=== PATIENT | male | born 1960 | race Caucasian/White ===

== ENCOUNTER 2020-07-20 07:30 | Inpatient (IN) | payer OTHER ==
[~2020-07-20] VITALS: Ht 180.3 cm; Wt 181.4 kg
[2020-07-20] MEDS ORDERED: cefTRIAXone 1GM/50ML D5W 50 ML IV ONE (08:00)
[2020-07-20] MEDS ORDERED: MIDAZOLAM HCL 5 MG/ML-1ML VIAL ONE (08:03)
[2020-07-20] MEDS ORDERED: ETOMIDATE (2MG/ML) 20ML VIAL IV ONE ×2 (08:03→08:15)
[2020-07-20] MEDS ORDERED: SUCCINYLCHOLINE CHLORIDE 20 MG/ML 10ML VIAL IV ONE ×2 (08:03→08:15)
[2020-07-20] MEDS ORDERED: MIDAZOLAM DRIP 50 mg/50mL 50 ML IV ONE (08:09)
[2020-07-20] MEDS ORDERED: MIDAZOLAM HCL 5 MG/ML-1ML VIAL IV ONE (08:15)
[2020-07-20] MEDS: MIDAZOLAM DRIP 50 mg/50mL 50 ML IV SCH (08:18)
[2020-07-20] MEDS: PROPOFOL 100 ML IV SCH (08:23)
[2020-07-20] MEDS ORDERED: PROPOFOL 100 ML IV ONE ×2 (08:25→12:48)
[2020-07-20 09:00] LABS: Lactic Acid w/Reflex 3.2 mmol/L (0.4-2.0)
[2020-07-20 09:09] LABS: Albumin 2.5 g/dL (3.4-5.0); Anion Gap 13 (5-15); Blood Urea Nitrogen 27 mg/dL (7-18); Carbon Dioxide 19 mmol/L (21-32); Chloride 106 mmol/L (98-107); Glucose 220 mg/dL (74-106); Potassium 4.7 mmol/L (3.5-5.1); Sodium 138 mmol/L (136-145)
[2020-07-20 09:15] LABS: Alanine Aminotransferase 53 U/L (16-61); Alkaline Phosphatase 68 U/L (45-117); Aspartate Aminotransferase 204 U/L (15-37); BUN/Creatinine Ratio 9.4; Bilirubin, Total 0.6 mg/dL (0.2-1.0); Blood Alcohol < 3.0 mg/dL (0-5); GFR African American 29 mL/min; GFR Non-African American 24 mL/min; Total Protein 7.7 g/dL (6.4-8.2)
[2020-07-20 09:42] LABS: Basophils # (auto) 0 10 ^3/uL (0-0.2); Eosinophils # (auto) 0 10 ^3/uL (0-0.8); Lymphocytes # (auto) 1.1 10 ^3/uL (0.4-5.4)
[2020-07-20 09:44] LABS: Basophils % (auto) 0.1 % (0.0-2.0); Hematocrit 48.3 % (41.0-53.0); Hemoglobin 15.7 g/dL (13.5-17.5); Lymphocytes % (auto) 9.6 % (10.0-50.0); Mean Corpuscular Hemoglobin 25.5 pg (28.0-32.0); Mean Corpuscular Hgb Conc. 32.5 g/dL (32.0-36.0); Mean Corpuscular Volume 78.5 fL (80.0-100.0); Monocytes # (auto) 0.8 10 ^3/uL (0-1.3); Monocytes % (auto) 7.1 % (0.0-12.0); Neutrophils # (auto) 9.7 10 ^3/uL (1.6-8.6); Neutrophils % (auto) 83.2 % (37.0-80.0); Platelet Count (auto) 284 10^3/uL (140-450); Red Blood Cells 6.15 10^6/uL (4.5-5.90); Red Cell Distribution Width 17.6 % (11.8-14.3); White Blood Cell 11.6 10^3/uL (4.4-10.8)
[2020-07-20] MEDS: NOREPINEPHRINE 8 MG/250ML KIT 250 ML IV SCH (10:18)
[2020-07-20] MEDS ORDERED: VANCOMYCIN PER PHARMACY 0 MG IV SCH (13:15)
[2020-07-20] MEDS ORDERED: REMDESIVIR PER PHARMACY 0 ML IV SCH (13:15)
[2020-07-20] MEDS ORDERED: HYDROcodone-ACET 5/325MG TAB PO PRN (13:15)
[2020-07-20] MEDS ORDERED: methylPREDNISolone SOD SUCC 125 MG/2 ML VL IV ONE (13:15)
[2020-07-20] MEDS ORDERED: ONDANSETRON HCL 4 MG/2 ML VIAL IV PRN (13:15)
[2020-07-20] MEDS ORDERED: MORPHINE SULF INJ 2 MG/ML SYRINGE 1ML IV PRN ×3 (13:15)
[2020-07-20] MEDS ORDERED: ALUM & MAG HYDROX-SIMETH LIQ(MAALOX) 30 ML PO PRN (13:15)
[2020-07-20] MEDS ORDERED: LORazepam 0.5 MG TAB PO PRN (13:15)
[2020-07-20] MEDS ORDERED: PIPERACILLIN-TAZOB 3.375GM 100 ML IV ONE (13:15)
[2020-07-20] MEDS ORDERED: DEXTROSE (50%) 50ML SYRG IV PRN (13:15)
[2020-07-20] MEDS ORDERED: ACETAMINOPHEN 500 MG TAB PO PRN (13:15)
[2020-07-20] MEDS ORDERED: ALBUTEROL SULF HFA 90MCG INH 200DOSE IN PRN (13:15)
[2020-07-20] MEDS ORDERED: DOCUSATE SOD 100 MG CAP PO PRN (13:15)
[2020-07-20] MEDS ORDERED: ENOXAPARIN SOD 100 MG/1 ML SYRINGE SC ONE ×3 (13:15→15:30)
[2020-07-20] MEDS ORDERED: NITROGLYCERIN 0.4 MG SL TAB SL PRN ×2 (13:15)
[2020-07-20] MEDS ORDERED: CHOL1000 PO (13:30)
[2020-07-20] MEDS ORDERED: MULT-928 PO (13:30)
[2020-07-20] MEDS ORDERED: GLIP5TAB12 PO (13:30)
[2020-07-20] MEDS ORDERED: LISI-646 PO (13:30)
[2020-07-20] MEDS ORDERED: ASPI-691 PO (13:30)
[2020-07-20 14:56] LABS: Basophils # (auto) 0 10 ^3/uL (0-0.2); Basophils % (auto) 0.3 % (0.0-2.0); Eosinophils # (auto) 0 10 ^3/uL (0-0.8); Hematocrit 50.5 % (41.0-53.0); Hemoglobin 14.8 g/dL (13.5-17.5); Lymphocytes # (auto) 1.6 10 ^3/uL (0.4-5.4); Lymphocytes % (auto) 11.6 % (10.0-50.0); Mean Corpuscular Hemoglobin 24.5 pg (28.0-32.0); Mean Corpuscular Hgb Conc. 29.3 g/dL (32.0-36.0); Mean Corpuscular Volume 83.4 fL (80.0-100.0); Monocytes # (auto) 1.5 10 ^3/uL (0-1.3); Monocytes % (auto) 10.5 % (0.0-12.0); Neutrophils # (auto) 10.9 10 ^3/uL (1.6-8.6); Neutrophils % (auto) 77.6 % (37.0-80.0); Nucleated Red Blood Cells % 0.1 %; Platelet Count (auto) 243 10^3/uL (140-450); Red Blood Cells 6.05 10^6/uL (4.5-5.90); Red Cell Distribution Width 18.3 % (11.8-14.3)
[2020-07-20] MEDS ORDERED: LACTATED RINGER'S 1,000 ML IV ONE (15:00)
[2020-07-20] MEDS ORDERED: FUROSEMIDE 20 MG/2 ML VIAL IV ONE (15:00)
[2020-07-20 15:06] LABS: Calcium 7.9 mg/dL (8.5-10.1); Chloride 107 mmol/L (98-107); Potassium 4.6 mmol/L (3.5-5.1); Sodium 137 mmol/L (136-145)
[2020-07-20 15:13] LABS: Lactic Acid w/Reflex 3.9 mmol/L (0.4-2.0)
[2020-07-20 15:27] LABS: Alanine Aminotransferase 59 U/L (16-61); Albumin 2.6 g/dL (3.4-5.0); Alkaline Phosphatase 70 U/L (45-117); Aspartate Aminotransferase 214 U/L (15-37); BUN/Creatinine Ratio 9.2; Bilirubin, Total 0.6 mg/dL (0.2-1.0); Blood Urea Nitrogen 32 mg/dL (7-18); Carbon Dioxide 19 mmol/L (21-32); GFR African American 23 mL/min; GFR Non-African American 19 mL/min; Glucose 232 mg/dL (74-106); Lactate Dehydrogenase 650 U/L (87-241); Magnesium 2.8 mg/dL (1.6-2.6)
[2020-07-20] MEDS ORDERED: ENOXAPARIN SOD 80 MG/0.8ML SYRINGE SC ONE (15:30)
[2020-07-20] MEDS ORDERED: VANCOMYCIN 1GM/250ML 250 ML IV ONE ×2 (15:30→22:15)
[2020-07-20] MEDS: SODIUM CHLORIDE 0.9% 1,000 ML IV SCH (16:00)
[2020-07-20 16:01] LABS: Anion Gap 11 (5-15)
[2020-07-20 16:02] LABS: CRP High Sensitivity > 19.0 mg/dL (< 0.3)
[2020-07-20] MEDS ORDERED: REMDESIVIR 200 MG in NS 210ml LOADING DOSE ADULT IV ONE (17:00)
[2020-07-20] MEDS: ACCU-CHEK COMFORT CURVE STRIP VI SCH (18:18)
[2020-07-20] MEDS: InsuLIN REG 1unit/0.01ml Soln (100units/ml) SC SCH (18:24)
[2020-07-20 18:25] VITALS: BP 86/49
[2020-07-20] MEDS: FUROSEMIDE 20 MG/2 ML VIAL IV SCH (18:30)
[2020-07-20] MEDS: PIPERACILLIN-TAZOB 3.375GM 100 ML IV SCH (19:30)
[2020-07-20] MEDS ORDERED: ACETAMINOPHEN 650 MG RECT SUPP PR ONE (20:30)
[2020-07-20 21:50] VITALS: BP 108/72
[2020-07-20] MEDS ORDERED: ENOXAPARIN SOD 150 MG/1 ML SYRINGE SC SCH (22:00)
[2020-07-20] MEDS: ATORVASTATIN 20 MG TAB PO SCH (22:00)
[2020-07-20] MEDS ORDERED: BUDESONIDE (INHALATION) 180 MCG IH IN SCH (22:00)
[2020-07-20] MEDS: BUDESONIDE (INHALATION) 0.5 MG/2 ML NEB NEB SCH (22:00)
[2020-07-20] MEDS ORDERED: FAMOTIDINE (10MG/ML) 2ML VL IV SCH (22:00)
[2020-07-21] MEDS: PIPERACILLIN-TAZOB 3.375GM 100 ML IV SCH ×3 (00:07→12:31)
[2020-07-21] MEDS: InsuLIN REG 1unit/0.01ml Soln (100units/ml) SC SCH ×3 (00:08→21:35)
[2020-07-21] MEDS: ACCU-CHEK COMFORT CURVE STRIP VI SCH ×3 (00:08→21:33)
[2020-07-21 02:21] VITALS: BP 113/69
[2020-07-21] MEDS: SODIUM CHLORIDE 0.9% 1,000 ML IV SCH (05:41)
[2020-07-21] MEDS: PROPOFOL 100 ML IV SCH (05:42)
[2020-07-21] MEDS: FUROSEMIDE 20 MG/2 ML VIAL IV SCH (05:54)
[2020-07-21] MEDS ORDERED: DEXTROSE (50%) 50ML SYRG IV PRN ×2 (06:30→13:00)
[2020-07-21 06:54] LABS: Basophils # (auto) 0 10 ^3/uL (0-0.2); Eosinophils # (auto) 0 10 ^3/uL (0-0.8); Hemoglobin 12.9 g/dL (13.5-17.5)
[2020-07-21 06:56] LABS: Basophils % (auto) 0.3 % (0.0-2.0); Hematocrit 41.2 % (41.0-53.0); Lymphocytes # (auto) 0.7 10 ^3/uL (0.4-5.4); Lymphocytes % (auto) 6.3 % (10.0-50.0); Mean Corpuscular Hemoglobin 24.6 pg (28.0-32.0); Mean Corpuscular Hgb Conc. 31.3 g/dL (32.0-36.0); Mean Corpuscular Volume 78.5 fL (80.0-100.0); Monocytes # (auto) 0.4 10 ^3/uL (0-1.3); Monocytes % (auto) 3.7 % (0.0-12.0); Neutrophils # (auto) 9.3 10 ^3/uL (1.6-8.6); Neutrophils % (auto) 89.7 % (37.0-80.0); Nucleated Red Blood Cells % 0.1 %; Platelet Count (auto) 212 10^3/uL (140-450); Red Blood Cells 5.24 10^6/uL (4.5-5.90); Red Cell Distribution Width 17.4 % (11.8-14.3); White Blood Cell 10.4 10^3/uL (4.4-10.8)
[2020-07-21 07:35] VITALS: BP 117/79
[2020-07-21 07:49] LABS: Albumin 2.1 g/dL (3.4-5.0); BUN/Creatinine Ratio 9.6; Calcium 7.3 mg/dL (8.5-10.1); Potassium 5.3 mmol/L (3.5-5.1)
[2020-07-21 07:52] LABS: Bilirubin, Total 0.6 mg/dL (0.2-1.0); Total Protein 5.9 g/dL (6.4-8.2)
[2020-07-21] MEDS: MIDAZOLAM DRIP 50 mg/50mL 50 ML IV SCH (08:15)
[2020-07-21] MEDS: NOREPINEPHRINE 8 MG/250ML KIT 250 ML IV SCH (08:59)
[2020-07-21] MEDS: BUDESONIDE (INHALATION) 0.5 MG/2 ML NEB NEB SCH ×2 (10:00→22:00)
[2020-07-21] MEDS ORDERED: InsuLIN REG 1unit/0.01ml Soln (100units/ml) IV ONE ×2 (10:15→13:00)
[2020-07-21] MEDS ORDERED: INSULIN LANTUS (GLARGINE) 1 /0.01ml (100units/ml) SC SCH (10:15)
[2020-07-21] MEDS ORDERED: SODIUM BICARBONATE 8.4 % INJ 50ML VIAL IV ONE (10:15)
--- NOTE | 2020-07-21 11:00 | NUR ---
WOUND CARE NOTE: IN TO SEE PATIENT PER WOUND CARE CONSULT REQUEST. PATIENT ADMITTED TO [facility] WITH DIAGNOSIS OF COVID 19, VIRAL PNA, HYPOXEMIC RESPIRATORY FAILURE. HE IS ER BED 16. PATIENT RESTING ON GURNEY. PATIENT MORBIDLY OBESE. WILL ORDER [facility] BARIATRIC AIR BED. PATIENT TO BE PLACED, PENDING DELIVERY BY JOSHUA TRIMBLE. PATIENT IS INTUBATED, SEDATED. HE HAS THE FOLLOWING WOUNDS NOTED: STAGE 2 PRESSURE INJURY TO THE LEFT SACRUM, RIGHT HIP SKIN TEAR, EDEMA, ERYTHEMA, HYPERKERATOTIC/XEROSIS TO BLE. WOUND PHOTOS TAKEN AT THIS TIME FOR REFERENCE. SKIN/WOUND CARE PLAN IMPLEMENTED. RECOMMEND: FREQUENT TURN SCHEDULE Q 2 HOURS, PRN CONDITION PERMITS, WITH PRESSURE REDISTRIBUTION USING PILLOWS/WEDGES, SPECIALTY BARIATRIC AIR BED, BID APPLICATION WITH ZGUARD/OPTIFOAM GENTLE SACRAL DRESSING TO SACRAL ULCER; EOD/PRN DRESSING CHANGE WITH THERAHONEY, OPTIFOAM GENTLE DRESSING TO RIGHT HIP SKIN TEAR; DIETARY CONSULT, SKIN/WOUND CARE PLAN, CONTINUED MONITORING BY WOUND CARE TEAM. Addendum: 07/21/20 at 2012 by Mariana Lundberg RN Amended: Links added.
--- NOTE | 2020-07-21 11:28 | NUR ---
Nutrition Consult for Intubated Consider Glucerna 1.2 at a goal rate of 60 ml/hr Consider Nepro CS 1.8 at 40 ml/hr if pt begins HD Est energy needs 7835-9852 kcal (20-25 kcal/kg IBW 78kg) Est protein needs 78-94g (1-1.2g/kg IBW 78kg) Will monitor and reassess prn. Addendum: 07/21/20 at [address] Amended: Links added.
[2020-07-21] MEDS ORDERED: ACCU-CHEK COMFORT CURVE STRIP VI SCH ×2 (12:00)
[2020-07-21] MEDS ORDERED: InsuLIN REG 1unit/0.01ml Soln (100units/ml) SC SCH ×2 (12:00)
[2020-07-21] MEDS: FAMOTIDINE (10MG/ML) 2ML VL IV SCH (12:30)
[2020-07-21] MEDS: DexAMETHasone SOD PHOS 10MG/1ML VIAL INJ IV SCH (12:30)
[2020-07-21] MEDS: ASPirin 81 mg TAB PO SCH (12:30)
[2020-07-21] MEDS: ZINC SULFATE 220mg CAP or TAB PO SCH (12:31)
[2020-07-21] MEDS: CHOLECALCIFEROL (VITD3) 2,000 UNIT CAP PO SCH (12:31)
[2020-07-21] MEDS: ENOXAPARIN SOD 150 MG/1 ML SYRINGE SC SCH (12:31)
[2020-07-21] MEDS: ASCORBIC ACID 1,000 MG TAB PO SCH (12:31)
[2020-07-21] MEDS: SODIUM BICARBONATE 50ML VIAL 150 ML in D5W 5% 1,000 ML IV SCH (13:00)
[2020-07-21] MEDS ORDERED: ALBUTEROL SULF 2.5 MG/0.5ML(0.5%) NEB SOLN NEB ONE (13:00)
[2020-07-21] MEDS ORDERED: SODIUM ZIRCONIUM CYCL 10 GM PAK GT ONE (13:00)
--- NOTE | 2020-07-21 13:00 | NUR ---
WOUND CARE NOTE: [facility] BARIATRIC AIR BED ORDERED AT THIS TIME. PATIENT TO BE PLACED, PENDING DELIVERY BY JOSHUA MOE
[2020-07-21] MEDS ORDERED: MIDAZOLAM DRIP 50 mg/50mL 50 ML IV ONE (13:06)
[2020-07-21] MEDS ORDERED: PROPOFOL 100 ML IV ONE (13:06)
[2020-07-21] MEDS ORDERED: SODIUM BICARBONATE 8.4% INJ 50ML SYRINGE ONE ×2 (13:45→14:03)
[2020-07-21] MEDS ORDERED: SOD CHL 0.45% 1,000 ML IV SCH (14:15)
[2020-07-21] MEDS ORDERED: REMDESIVIR 100 MG in SODIUM CHL 0.9% 250 ML IV SCH (15:00)
--- NOTE | 2020-07-21 17:20 | NUR ---
WOUND CARE NOTE: JOSHUA ROM REP CALLED. ETA FOR BARIATRIC BED IS FOR 1830.
[2020-07-21] MEDS: PIPERACILLIN-TAZOB 2.25GM 50 ML IV SCH (18:00)
[2020-07-21 18:40] VITALS: BP 115/75
--- NOTE | 2020-07-21 18:40 | NUR ---
RECEIVED PT ON VENT V19, VENT CHECK DONE FROM PT ROOM. VENT CONNECTED TO RED OUTLET AND O2 SOURCE ALARMS ARE SET AND AUDIBLE. AMBU BAG AND MASK AT BEDSIDE. NO VENT CHANGES MADE, WILL CONTINUE TO MONITOR.
[2020-07-21] MEDS: ATORVASTATIN 20 MG TAB PO SCH (22:06)
[2020-07-21] MEDS: LINEZOLID 600MG/300ML 300 ML IV SCH (22:06)
[2020-07-21] MEDS: SODIUM ZIRCONIUM CYCL 10 GM PAK GT SCH (22:06)
[2020-07-22] VITALS (17 sets, daily range): BP systolic 93–109; BP diastolic 54–67
[2020-07-22] MEDS: ACCU-CHEK COMFORT CURVE STRIP VI SCH ×9 (00:49→20:00)
[2020-07-22] MEDS: SODIUM BICARBONATE 50ML VIAL 150 ML in D5W 5% 1,000 ML IV SCH ×2 (00:50→12:00)
[2020-07-22] MEDS: InsuLIN REG 1unit/0.01ml Soln (100units/ml) SC SCH ×7 (00:51→20:00)
[2020-07-22] MEDS: PIPERACILLIN-TAZOB 2.25GM 50 ML IV SCH ×4 (01:11→17:54)
[2020-07-22] MEDS: PROPOFOL 100 ML IV SCH (01:12)
[2020-07-22 03:11] LABS: Alcohol, Urine < 3.0 mg/dL (0-10); Amphetamine Screen, Urine NEGATIVE (NEGATIVE); Barbiturate Scree,Urine NEGATIVE (NEGATIVE); Benzodiazephine Screen, Urine POSITIVE (NEGATIVE); Cannabinoid Screen, Urine NEGATIVE (NEGATIVE); Cocaine Screen, Urine NEGATIVE (NEGATIVE); Opiate Scree,Urine NEGATIVE (NEGATIVE); Phencyclidine Screen, Urine NEGATIVE (NEGATIVE)
[2020-07-22 03:30] LABS: Urine Bacteria NONE SEEN /hpf (None Seen); Urine Blood 3+ /uL (Negative); Urine Specific Gravity 1.023 (1.001-1.035); Urine WBC 12 /hpf (0 - 3); Urine WBC Clumps PRESENT /hpf (None Seen)
[2020-07-22] MEDS: SODIUM ZIRCONIUM CYCL 10 GM PAK GT SCH ×3 (06:00→21:42)
[2020-07-22 06:08] LABS: Basophils # (auto) 0 10 ^3/uL (0-0.2); Basophils % (auto) 0.1 % (0.0-2.0); Eosinophils # (auto) 0 10 ^3/uL (0-0.8); Lymphocytes # (auto) 0.5 10 ^3/uL (0.4-5.4); Monocytes # (auto) 0.5 10 ^3/uL (0-1.3); Nucleated Red Blood Cells % 0.1 %; Red Cell Distribution Width 17.5 % (11.8-14.3)
[2020-07-22 06:15] LABS: Hematocrit 37.3 % (41.0-53.0); Hemoglobin 11.9 g/dL (13.5-17.5); Lymphocytes % (auto) 5.4 % (10.0-50.0); Mean Corpuscular Hemoglobin 24.9 pg (28.0-32.0); Mean Corpuscular Hgb Conc. 31.9 g/dL (32.0-36.0); Mean Corpuscular Volume 77.9 fL (80.0-100.0); Monocytes % (auto) 6.1 % (0.0-12.0); Neutrophils % (auto) 88.4 % (37.0-80.0); Platelet Count (auto) 191 10^3/uL (140-450); Red Blood Cells 4.79 10^6/uL (4.5-5.90)
[2020-07-22 06:19] LABS: Potassium 4.7 mmol/L (3.5-5.1)
[2020-07-22 06:20] LABS: Albumin 1.8 g/dL (3.4-5.0)
[2020-07-22 06:23] LABS: BUN/Creatinine Ratio 9.7; Bilirubin, Total 0.3 mg/dL (0.2-1.0); Total Protein 6.1 g/dL (6.4-8.2)
[2020-07-22] MEDS ORDERED: INSULIN LANTUS (GLARGINE) 1 /0.01ml (100units/ml) SC SCH (07:00)
--- NOTE | 2020-07-22 07:54 | NUR ---
BLOOD SUGAR 418 CHECKED X2. PAGED HOSPITALIST.
[2020-07-22] MEDS: MIDAZOLAM DRIP 50 mg/50mL 50 ML IV SCH ×3 (08:15→21:30)
[2020-07-22] MEDS ORDERED: cefTRIAXone 1GM/50ML D5W 50 ML IV SCH (09:00)
[2020-07-22] MEDS: NOREPINEPHRINE 8 MG/250ML KIT 250 ML IV SCH (09:30)
[2020-07-22] MEDS: ASCORBIC ACID 1,000 MG TAB PO SCH (09:54)
[2020-07-22] MEDS: CHOLECALCIFEROL (VITD3) 2,000 UNIT CAP PO SCH (09:54)
[2020-07-22] MEDS: LINEZOLID 600MG/300ML 300 ML IV SCH ×2 (09:54→21:55)
[2020-07-22] MEDS: DexAMETHasone SOD PHOS 10MG/1ML VIAL INJ IV SCH (09:54)
[2020-07-22] MEDS: FAMOTIDINE (10MG/ML) 2ML VL IV SCH (09:54)
[2020-07-22] MEDS: ASPirin 81 mg TAB PO SCH (09:54)
[2020-07-22] MEDS: PANTOPRAZOLE 40 MG/10 ML VIAL INJ IV SCH (09:54)
[2020-07-22] MEDS: ENOXAPARIN SOD 150 MG/1 ML SYRINGE SC SCH (09:54)
[2020-07-22] MEDS: ZINC SULFATE 220mg CAP or TAB PO SCH (09:54)
--- NOTE | 2020-07-22 10:00 | NUR ---
Updated md thayer on blood sugar levels
--- NOTE | 2020-07-22 11:01 | NUR ---
RECEIVED PHONE CALL FROM JEN UPDATED ON PATIENT STATUS, NO NEW ORDERS RECEIVED
[2020-07-22] MEDS ORDERED: DEXTROSE (50%) 50ML SYRG IV PRN (12:00)
--- NOTE | 2020-07-22 12:10 | NUR ---
MD CHO AT BEDSIDE UPDATED ON PATIENT STATUS, NO NEW ORDERS RECEIVED
--- NOTE | 2020-07-22 12:39 | NUR ---
MD ADELINA DUPREE BEDSIDE UPDATED ON PATIENT STATUS, NEW ORDERS RECEIVED
[2020-07-22] MEDS ORDERED: BUMETANIDE 2.5mg/10ml (0.25 mg/ml) INJ IV ONE (13:30)
--- NOTE | 2020-07-22 14:32 | NUR ---
SPOKE WITH SON GARRICK TALBOT, SON WOULD LIKE TO PURSUE HD TREATMENT FOR FATHER. [phone] PLACED PAGE TO MD LI
[2020-07-22] MEDS: INSULIN LANTUS (GLARGINE) 1 /0.01ml (100units/ml) SC SCH (21:55)
[2020-07-22] MEDS: BUDESONIDE (INHALATION) 0.5 MG/2 ML NEB NEB SCH (22:00)
[2020-07-22] MEDS: ATORVASTATIN 20 MG TAB PO SCH (22:04)
[2020-07-23] MEDS: PROPOFOL 100 ML IV SCH ×2 (00:39→13:32)
[2020-07-23] MEDS: ACCU-CHEK COMFORT CURVE STRIP VI SCH ×12 (00:42→21:08)
[2020-07-23] MEDS: InsuLIN REG 1unit/0.01ml Soln (100units/ml) SC SCH ×6 (00:45→21:09)
[2020-07-23] MEDS: MIDAZOLAM DRIP 50 mg/50mL 50 ML IV SCH ×3 (00:45→08:55)
[2020-07-23] MEDS: PIPERACILLIN-TAZOB 2.25GM 50 ML IV SCH ×4 (00:55→18:00)
[2020-07-23] MEDS: SODIUM BICARBONATE 50ML VIAL 150 ML in D5W 5% 1,000 ML IV SCH ×3 (01:30→21:53)
[2020-07-23 02:50] VITALS: BP 106/66
[2020-07-23 06:10] VITALS: BP 103/60
[2020-07-23] MEDS: ALBUTEROL SULF 2.5 MG/0.5ML(0.5%) NEB SOLN NEB PRN ×2 (06:13→18:33)
[2020-07-23] MEDS: BUDESONIDE (INHALATION) 0.5 MG/2 ML NEB NEB SCH ×3 (06:14→23:47)
[2020-07-23] MEDS: SODIUM ZIRCONIUM CYCL 10 GM PAK GT SCH ×2 (06:26→15:10)
[2020-07-23] MEDS: INSULIN LANTUS (GLARGINE) 1 /0.01ml (100units/ml) SC SCH ×2 (06:34→21:45)
[2020-07-23] MEDS: ENOXAPARIN SOD 150 MG/1 ML SYRINGE SC SCH (08:57)
[2020-07-23] MEDS: FAMOTIDINE (10MG/ML) 2ML VL IV SCH (08:57)
[2020-07-23] MEDS: PANTOPRAZOLE 40 MG/10 ML VIAL INJ IV SCH (08:57)
[2020-07-23] MEDS: ZINC SULFATE 220mg CAP or TAB PO SCH (08:57)
[2020-07-23] MEDS: DexAMETHasone SOD PHOS 10MG/1ML VIAL INJ IV SCH (08:57)
[2020-07-23] MEDS: ASPirin 81 mg TAB PO SCH (08:57)
[2020-07-23] MEDS: CHOLECALCIFEROL (VITD3) 2,000 UNIT CAP PO SCH (08:57)
[2020-07-23] MEDS: ASCORBIC ACID 1,000 MG TAB PO SCH (08:57)
[2020-07-23] MEDS: NOREPINEPHRINE 8 MG/250ML KIT 250 ML IV SCH (09:30)
[2020-07-23] MEDS: LINEZOLID 600MG/300ML 300 ML IV SCH ×2 (09:41→21:44)
[2020-07-23 09:56] LABS: INR 1.06 (0.9-1.15); Partial Thromboplastin Time 38.7 sec (23.0-31.2)
[2020-07-23 10:02] LABS: Basophils # (auto) 0 10 ^3/uL (0-0.2); Basophils % (auto) 0.1 % (0.0-2.0); Eosinophils # (auto) 0 10 ^3/uL (0-0.8); Hemoglobin 11.5 g/dL (13.5-17.5); Lymphocytes # (auto) 0.5 10 ^3/uL (0.4-5.4); Monocytes # (auto) 0.7 10 ^3/uL (0-1.3); Neutrophils # (auto) 7.1 10 ^3/uL (1.6-8.6); Nucleated Red Blood Cells % 0.1 %
[2020-07-23 10:03] LABS: Albumin 1.7 g/dL (3.4-5.0); Calcium 6.7 mg/dL (8.5-10.1)
[2020-07-23 10:05] LABS: Eosinophils % (auto) 0.1 % (0.0-7.0); Hematocrit 35.4 % (41.0-53.0); Lymphocytes % (auto) 6.4 % (10.0-50.0); Mean Corpuscular Hemoglobin 24.9 pg (28.0-32.0); Mean Corpuscular Hgb Conc. 32.5 g/dL (32.0-36.0); Mean Corpuscular Volume 76.5 fL (80.0-100.0); Neutrophils % (auto) 85.4 % (37.0-80.0); Platelet Count (auto) 229 10^3/uL (140-450); Red Blood Cells 4.63 10^6/uL (4.5-5.90); Red Cell Distribution Width 17.3 % (11.8-14.3); White Blood Cell 8.4 10^3/uL (4.4-10.8)
[2020-07-23 10:27] LABS: Bilirubin, Total 0.3 mg/dL (0.2-1.0); Total Protein 5.6 g/dL (6.4-8.2)
[2020-07-23 15:21] VITALS: BP 114/65
[2020-07-23] MEDS ORDERED: SODIUM CHL 0.9% 1000 ML BAG XX ONE (16:30)
[2020-07-23 18:33] VITALS: BP 113/66
--- NOTE | 2020-07-23 18:33 | NUR ---
RECEIVED PT ON VENT V19 IN ER BED 12, VENT CONNECTED TO RED OUTLET AND O2 SOURCE ALARMS ARE SET AND AUDIBLE. AMBU BAG AND MASK AT BEDSIDE. BS ARE COURSE T/O SXD X2 VIA ETT, FOR LARGE AMOUNT OF THICK ADHIKARI. MED NEB TX GIVEN INLINE VIA VENT, NO ADVERSE REACTION NOTED. NO CURRENT TEMP READS 97.9F. NO VENT CHANGES MADE. WILL CONTINUE TO MONITOR.
[2020-07-23] MEDS: ATORVASTATIN 20 MG TAB PO SCH (21:54)
[2020-07-23 22:35] VITALS: BP 113/65
--- NOTE | 2020-07-23 22:35 | NUR ---
AT BEDSIDE FOR ROUTINE VENT CHECK. CURRENT TEMP READS 97.7F. NO CHANGES MADE, WILL CONTINUE TO MONITOR.
[2020-07-24] MEDS: ACCU-CHEK COMFORT CURVE STRIP VI SCH ×10 (00:13→20:38)
[2020-07-24] MEDS: InsuLIN REG 1unit/0.01ml Soln (100units/ml) SC SCH ×6 (00:30→20:38)
[2020-07-24] MEDS: PIPERACILLIN-TAZOB 2.25GM 50 ML IV SCH ×4 (01:00→17:57)
[2020-07-24 01:49] VITALS: BP 113/69
--- NOTE | 2020-07-24 01:49 | NUR ---
AT BEDSIDE FOR ROUTINE VENT CHECK. CURRENT TEMP READS 97.7F. NO CHANGES MADE WILL CONTINUE TO MONITOR.
[2020-07-24] MEDS: BUDESONIDE (INHALATION) 0.5 MG/2 ML NEB NEB SCH ×2 (06:09→19:00)
[2020-07-24] MEDS: ALBUTEROL SULF 2.5 MG/0.5ML(0.5%) NEB SOLN NEB PRN ×2 (06:10→20:10)
[2020-07-24 06:12] LABS: Basophils # (auto) 0 10 ^3/uL (0-0.2); Eosinophils # (auto) 0 10 ^3/uL (0-0.8); Eosinophils % (auto) 0.1 % (0.0-7.0); Hemoglobin 11.7 g/dL (13.5-17.5); Monocytes # (auto) 0.8 10 ^3/uL (0-1.3); Nucleated Red Blood Cells % 0.1 %; Red Cell Distribution Width 17.5 % (11.8-14.3)
[2020-07-24 06:15] LABS: Basophils % (auto) 0.1 % (0.0-2.0); Hematocrit 36.2 % (41.0-53.0); Lymphocytes # (auto) 0.7 10 ^3/uL (0.4-5.4); Lymphocytes % (auto) 9.4 % (10.0-50.0); Mean Corpuscular Hemoglobin 24.7 pg (28.0-32.0); Mean Corpuscular Hgb Conc. 32.2 g/dL (32.0-36.0); Mean Corpuscular Volume 76.7 fL (80.0-100.0); Monocytes % (auto) 9.7 % (0.0-12.0); Neutrophils # (auto) 6.4 10 ^3/uL (1.6-8.6); Neutrophils % (auto) 80.7 % (37.0-80.0); Platelet Count (auto) 218 10^3/uL (140-450); Red Blood Cells 4.72 10^6/uL (4.5-5.90)
[2020-07-24 06:20] VITALS: BP 117/71
[2020-07-24 06:20] LABS: Potassium 4.1 mmol/L (3.5-5.1)
[2020-07-24 06:27] LABS: Albumin 1.7 g/dL (3.4-5.0); BUN/Creatinine Ratio 9.9; Bilirubin, Total 0.3 mg/dL (0.2-1.0); Calcium 6.7 mg/dL (8.5-10.1); Total Protein 5.7 g/dL (6.4-8.2)
[2020-07-24] MEDS: INSULIN LANTUS (GLARGINE) 1 /0.01ml (100units/ml) SC SCH ×2 (08:03→22:45)
[2020-07-24] MEDS: ENOXAPARIN SOD 150 MG/1 ML SYRINGE SC SCH (08:45)
[2020-07-24] MEDS: ASCORBIC ACID 1,000 MG TAB PO SCH (08:45)
[2020-07-24] MEDS: DexAMETHasone SOD PHOS 10MG/1ML VIAL INJ IV SCH (08:45)
[2020-07-24] MEDS: ZINC SULFATE 220mg CAP or TAB PO SCH (08:45)
[2020-07-24] MEDS: FAMOTIDINE (10MG/ML) 2ML VL IV SCH (08:45)
[2020-07-24] MEDS: PANTOPRAZOLE 40 MG/10 ML VIAL INJ IV SCH (08:45)
[2020-07-24] MEDS: CHOLECALCIFEROL (VITD3) 2,000 UNIT CAP PO SCH (08:45)
[2020-07-24] MEDS: PROPOFOL 100 ML IV SCH ×3 (09:13→18:07)
[2020-07-24] MEDS: LINEZOLID 600MG/300ML 300 ML IV SCH ×2 (09:14→22:22)
[2020-07-24] MEDS: MIDAZOLAM DRIP 50 mg/50mL 50 ML IV SCH ×2 (12:19→18:07)
[2020-07-24 13:36] VITALS: BP 116/70
[2020-07-24] MEDS: SODIUM BICARBONATE 50ML VIAL 150 ML in D5W 5% 1,000 ML IV SCH ×2 (13:44→21:30)
--- NOTE | 2020-07-24 14:47 | NUR ---
Nutrition Followup Note Wt: 181.4 kg Pt intubated sedated with propofl,@ 21.72 ml/hr [id number] kcals from fats. pt is currently NPO with no new diet order. pt had HD yesterday per records Est energy needs 1989-5459 kcal (20-25 kcal/kg IBW 78kg) Est protein needs 78-94g (1-1.2g/kg IBW 78kg) Will monitor and reassess prn. Labs: ALB 1.7 L, BUN 82 H CREAT 8.3 H GLU 265 H BM: Pt has no BM reported per RN note Skin: BS 11 high risk, full details in healthcare interpreter note. PES: Altered nutrition related labs aeb pt with hyperglycemia, elevated RFTs, hyperkalemia, severe hypoalb r/t current medical condition and chronic medical conditions Comments: Continue to monitor NPO status, labs, skin. F/u high 2-3 days. Rec: 1) refer pt to OPD on DC 2) Continue current plan of care. 3) Consider alternate nutrition of NPO >48hrs 2) Consider Nepro CS 1.8 at 40 ml/hr as pt is now on HD 4) advance diet as medically feasible
[2020-07-24 19:00] VITALS: BP 122/73
[2020-07-24] MEDS: ATORVASTATIN 20 MG TAB PO SCH (22:00)
[2020-07-24 22:50] VITALS: BP 119/69
[2020-07-25] MEDS: PIPERACILLIN-TAZOB 2.25GM 50 ML IV SCH ×5 (00:13→23:09)
[2020-07-25] MEDS: InsuLIN REG 1unit/0.01ml Soln (100units/ml) SC SCH ×7 (00:26→23:22)
[2020-07-25] MEDS: ACCU-CHEK COMFORT CURVE STRIP VI SCH ×7 (00:54→23:26)
[2020-07-25 02:30] VITALS: BP 124/73
[2020-07-25] MEDS: INSULIN LANTUS (GLARGINE) 1 /0.01ml (100units/ml) SC SCH ×2 (06:31→19:58)
[2020-07-25 07:19] VITALS: BP 118/71
[2020-07-25] MEDS: SODIUM BICARBONATE 50ML VIAL 150 ML in D5W 5% 1,000 ML IV SCH (08:32)
[2020-07-25] MEDS: FAMOTIDINE (10MG/ML) 2ML VL IV SCH (08:51)
[2020-07-25] MEDS: CHOLECALCIFEROL (VITD3) 2,000 UNIT CAP PO SCH (08:51)
[2020-07-25] MEDS: PANTOPRAZOLE 40 MG/10 ML VIAL INJ IV SCH (08:51)
[2020-07-25] MEDS: LINEZOLID 600MG/300ML 300 ML IV SCH ×2 (08:51→21:15)
[2020-07-25] MEDS: ENOXAPARIN SOD 150 MG/1 ML SYRINGE SC SCH (08:51)
[2020-07-25] MEDS: ASCORBIC ACID 1,000 MG TAB PO SCH (08:51)
[2020-07-25] MEDS: MIDAZOLAM DRIP 50 mg/50mL 50 ML IV SCH ×4 (08:51→21:16)
[2020-07-25] MEDS: ZINC SULFATE 220mg CAP or TAB PO SCH (08:51)
[2020-07-25] MEDS: DexAMETHasone SOD PHOS 10MG/1ML VIAL INJ IV SCH (08:51)
[2020-07-25] MEDS: BUDESONIDE (INHALATION) 0.5 MG/2 ML NEB NEB SCH ×2 (10:00→22:00)
[2020-07-25] MEDS: PROPOFOL 100 ML IV SCH ×3 (11:46→22:51)
[2020-07-25] MEDS ORDERED: REMDESIVIR PER PHARMACY 0 ML IV SCH ×2 (16:15→16:30)
[2020-07-25 18:30] VITALS: BP 122/79
[2020-07-25] MEDS: REMDESIVIR 100 MG in SODIUM CHL 0.9% 250 ML IV SCH (21:05)
[2020-07-25 21:15] LABS: Hematocrit 28.5 % (41.0-53.0); Hemoglobin 10.2 g/dL (13.5-17.5); Mean Corpuscular Hemoglobin 27.2 pg (28.0-32.0); Mean Corpuscular Hgb Conc. 35.7 g/dL (32.0-36.0); Mean Corpuscular Volume 76.2 fL (80.0-100.0); Platelet Count (auto) 261 10^3/uL (140-450); Red Blood Cells 3.74 10^6/uL (4.5-5.90); Red Cell Distribution Width 17.4 % (11.8-14.3); White Blood Cell 9.4 10^3/uL (4.4-10.8)
[2020-07-25] MEDS: ATORVASTATIN 20 MG TAB PO SCH (21:15)
[2020-07-25 21:28] LABS: Basophils % (manual) 0 (0.0-2.0); Blast Cells 0; Metamyelocytes % 0; Myelocytes % 0; Promyelocytes % 0; Reactive Lymphocytes 0
[2020-07-25 22:02] LABS: Band Neutrophils % (manual) 4; Eosinophils % (manual) 2 (0-7); Lymphocytes % (manual) 8 (10.0-50.0); Monocytes % (manual) 6 (0-12)
[2020-07-25 22:30] VITALS: BP 136/78
[2020-07-25] MEDS: ALBUTEROL SULF 2.5 MG/0.5ML(0.5%) NEB SOLN NEB PRN (22:55)
[2020-07-25 23:47] LABS: Albumin 1.7 g/dL (3.4-5.0); Potassium 3.8 mmol/L (3.5-5.1)
[2020-07-25 23:49] LABS: Bilirubin, Total 0.3 mg/dL (0.2-1.0); Total Protein 5.7 g/dL (6.4-8.2)
[2020-07-26] MEDS: PROPOFOL 100 ML IV SCH (02:09)
[2020-07-26] MEDS: MIDAZOLAM DRIP 50 mg/50mL 50 ML IV SCH (02:10)
[2020-07-26 02:45] VITALS: BP 140/83
[2020-07-26] MEDS: InsuLIN REG 1unit/0.01ml Soln (100units/ml) SC SCH ×3 (04:00→18:43)
[2020-07-26] MEDS: ACCU-CHEK COMFORT CURVE STRIP VI SCH ×3 (04:06→17:21)
[2020-07-26 06:02] LABS: Hemoglobin 10.9 g/dL (13.5-17.5); White Blood Cell 12.3 10^3/uL (4.4-10.8)
[2020-07-26 06:05] LABS: Hematocrit 33.3 % (41.0-53.0); Mean Corpuscular Hemoglobin 24.5 pg (28.0-32.0); Mean Corpuscular Hgb Conc. 32.7 g/dL (32.0-36.0); Mean Corpuscular Volume 74.9 fL (80.0-100.0); Platelet Count (auto) 348 10^3/uL (140-450); Red Blood Cells 4.45 10^6/uL (4.5-5.90); Red Cell Distribution Width 17.1 % (11.8-14.3)
[2020-07-26] MEDS: PIPERACILLIN-TAZOB 2.25GM 50 ML IV SCH ×3 (06:11→17:22)
[2020-07-26 06:16] LABS: Albumin 1.7 g/dL (3.4-5.0); Potassium 3.7 mmol/L (3.5-5.1)
[2020-07-26 06:19] LABS: BUN/Creatinine Ratio 10.7; Bilirubin, Total 0.4 mg/dL (0.2-1.0); Total Protein 5.7 g/dL (6.4-8.2)
[2020-07-26 06:25] LABS: Calcium 5.8 mg/dL (8.5-10.1)
[2020-07-26 06:28] VITALS: BP 143/85
[2020-07-26] MEDS ORDERED: SODIUM ZIRCONIUM CYCL 10 GM PAK PO ONE (06:45)
[2020-07-26 06:50] LABS: Basophils % (manual) 0 (0.0-2.0); Blast Cells 0; Eosinophils % (manual) 0 (0-7); Metamyelocytes % 0; Promyelocytes % 0; Reactive Lymphocytes 0
[2020-07-26] MEDS: INSULIN LANTUS (GLARGINE) 1 /0.01ml (100units/ml) SC SCH (06:58)
[2020-07-26 07:58] LABS: Band Neutrophils % (manual) 1; Lymphocytes % (manual) 8 (10.0-50.0); Monocytes % (manual) 8 (0-12); Myelocytes % 1
[2020-07-26] MEDS: BUDESONIDE (INHALATION) 0.5 MG/2 ML NEB NEB SCH ×2 (09:09→18:10)
[2020-07-26] MEDS: CHOLECALCIFEROL (VITD3) 2,000 UNIT CAP PO SCH (10:00)
[2020-07-26 10:33] LABS: Hepatitis A Ab IgM Negative; Hepatitis B Core IgM Negative; Hepatitis B Surface Antigen Negative (Negative); Hepatitis C Antibody Negative (Negative)
--- NOTE | 2020-07-26 11:01 | NUR ---
Called [facility] and spoke with Kevin ARELLANO stated that they are tracking the patient daily through the clinicals they get, but they have no COVID beds, but they will continue to monitor the patient.
[2020-07-26] MEDS: DexAMETHasone SOD PHOS 10MG/1ML VIAL INJ IV SCH (11:10)
[2020-07-26] MEDS: FAMOTIDINE (10MG/ML) 2ML VL IV SCH (11:11)
[2020-07-26] MEDS: LINEZOLID 600MG/300ML 300 ML IV SCH ×2 (11:11→22:10)
[2020-07-26] MEDS: ASCORBIC ACID 1,000 MG TAB PO SCH (11:11)
[2020-07-26] MEDS: PANTOPRAZOLE 40 MG/10 ML VIAL INJ IV SCH (11:11)
[2020-07-26] MEDS: ZINC SULFATE 220mg CAP or TAB PO SCH (11:11)
[2020-07-26] MEDS: ENOXAPARIN SOD 150 MG/1 ML SYRINGE SC SCH (11:12)
[2020-07-26 14:00] VITALS: BP 146/83
--- NOTE | 2020-07-26 14:26 | NUR ---
Nutrition Followup Note Wt: 181.4 kg Pt intubated sedated with propofol @ 16.329 ml/hr providing 431 kcals from fats. Pt is currently NPO with no new diet order. Pt had HD yesterday on 07/25 per records. Suggest nutrition support be initiated. Refer to nutrition recommendations noted below under Comments. Est energy needs 5185-1901 kcal (20-25 kcal/kg IBW 78kg) Est protein needs 78-94g (1-1.2g/kg IBW 78kg) Will monitor and reassess prn. Labs: ALB 1.7 L, BUN 87 H CREAT 8.14 H CA 5.8 L BM: Pt has no BM reported per RN note Skin: BS 11 high risk, full details in customer care representative note. PES: Altered nutrition related labs aeb pt with hyperglycemia, elevated RFTs, hyperkalemia, severe hypoalb r/t current medical condition and chronic medical conditions Comments: Continue to monitor NPO status, labs, skin. F/u high 2-3 days. Rec: 1) Consider alternate nutrition of NPO >48hrs 2) Consider Nepro CS 1.8 at 40 ml/hr as pt is now on HD 3) Advance diet as medically feasible 4) Refer pt to OPD on DC 5) Continue current plan of care.
[2020-07-26] MEDS ORDERED: DEXTROSE (50%) 50ML SYRG IV PRN (14:45)
[2020-07-26] MEDS: REMDESIVIR 100 MG in SODIUM CHL 0.9% 250 ML IV SCH (15:47)
[2020-07-26 18:10] VITALS: BP 124/65
[2020-07-26] MEDS: ALBUTEROL SULF 2.5 MG/0.5ML(0.5%) NEB SOLN NEB PRN (20:18)
[2020-07-26 22:10] VITALS: BP 131/75
[2020-07-26] MEDS: ATORVASTATIN 20 MG TAB PO SCH (22:10)
[2020-07-27] MEDS: PIPERACILLIN-TAZOB 2.25GM 50 ML IV SCH ×3 (00:06→12:00)
[2020-07-27] MEDS: ACCU-CHEK COMFORT CURVE STRIP VI SCH ×4 (00:25→17:04)
[2020-07-27] MEDS: InsuLIN REG 1unit/0.01ml Soln (100units/ml) SC SCH ×4 (00:28→17:05)
[2020-07-27 02:10] VITALS: BP 136/78
[2020-07-27 06:35] VITALS: BP 141/85
[2020-07-27] MEDS: ALBUTEROL SULF 2.5 MG/0.5ML(0.5%) NEB SOLN NEB PRN (06:35)
[2020-07-27] MEDS: BUDESONIDE (INHALATION) 0.5 MG/2 ML NEB NEB SCH (06:35)
[2020-07-27 06:53] LABS: Hematocrit 34.9 % (41.0-53.0); Hemoglobin 11.5 g/dL (13.5-17.5); Mean Corpuscular Hemoglobin 24.7 pg (28.0-32.0); Mean Corpuscular Hgb Conc. 32.8 g/dL (32.0-36.0); Mean Corpuscular Volume 75.2 fL (80.0-100.0); Platelet Count (auto) 345 10^3/uL (140-450); Red Blood Cells 4.64 10^6/uL (4.5-5.90); White Blood Cell 10.3 10^3/uL (4.4-10.8)
[2020-07-27 06:59] LABS: Albumin 1.7 g/dL (3.4-5.0); Calcium 6.3 mg/dL (8.5-10.1); Potassium 3.7 mmol/L (3.5-5.1)
[2020-07-27 07:03] LABS: Bilirubin, Total 0.4 mg/dL (0.2-1.0); Total Protein 5.9 g/dL (6.4-8.2)
[2020-07-27 07:46] LABS: Basophils % (manual) 0 (0.0-2.0); Blast Cells 0; Eosinophils % (manual) 0 (0-7); Promyelocytes % 0; Reactive Lymphocytes 0
[2020-07-27] MEDS: MIDAZOLAM DRIP 50 mg/50mL 50 ML IV SCH ×4 (08:24→19:02)
[2020-07-27 09:11] LABS: Band Neutrophils % (manual) 5; Lymphocytes % (manual) 6 (10.0-50.0); Metamyelocytes % 2; Monocytes % (manual) 12 (0-12); Myelocytes % 1
[2020-07-27] MEDS: ENOXAPARIN SOD 150 MG/1 ML SYRINGE SC SCH (09:22)
[2020-07-27] MEDS: PROPOFOL 100 ML IV SCH ×3 (09:22→16:43)
[2020-07-27] MEDS: ZINC SULFATE 220mg CAP or TAB PO SCH (09:29)
[2020-07-27] MEDS: FAMOTIDINE (10MG/ML) 2ML VL IV SCH (09:29)
[2020-07-27] MEDS: CHOLECALCIFEROL (VITD3) 2,000 UNIT CAP PO SCH (09:29)
[2020-07-27] MEDS: DexAMETHasone SOD PHOS 10MG/1ML VIAL INJ IV SCH (09:29)
[2020-07-27] MEDS: ASCORBIC ACID 1,000 MG TAB PO SCH (09:29)
[2020-07-27] MEDS: INSULIN LANTUS (GLARGINE) 1 /0.01ml (100units/ml) SC SCH (09:29)
[2020-07-27] MEDS: LINEZOLID 600MG/300ML 300 ML IV SCH (09:30)
[2020-07-27] MEDS: PANTOPRAZOLE 40 MG/10 ML VIAL INJ IV SCH (09:30)
[2020-07-27 10:45] VITALS: BP 130/80
[2020-07-27] MEDS ORDERED: HEPARIN SODIUM (PORCINE) 5000 UNITS/ML 1ML VIAL XX ONE (11:00)
[2020-07-27 14:08] VITALS: BP 133/81
[2020-07-27] MEDS: REMDESIVIR 100 MG in SODIUM CHL 0.9% 250 ML IV SCH (14:32)
[2020-07-27 20:15] VITALS: BP 109/62
[2020-07-27] MEDS: ATORVASTATIN 20 MG TAB PO SCH (22:23)
[2020-07-28] MEDS: ACCU-CHEK COMFORT CURVE STRIP VI SCH ×4 (00:27→18:12)
[2020-07-28] MEDS: InsuLIN REG 1unit/0.01ml Soln (100units/ml) SC SCH ×4 (00:29→18:11)
[2020-07-28 01:13] VITALS: BP 125/71
[2020-07-28 06:08] VITALS: BP 115/63
[2020-07-28] MEDS: BUDESONIDE (INHALATION) 0.5 MG/2 ML NEB NEB SCH ×3 (06:08→08:32)
[2020-07-28 08:34] LABS: Hematocrit 36.6 % (41.0-53.0); Hemoglobin 12.1 g/dL (13.5-17.5); Mean Corpuscular Hemoglobin 25.3 pg (28.0-32.0); Mean Corpuscular Hgb Conc. 33.1 g/dL (32.0-36.0); Mean Corpuscular Volume 76.3 fL (80.0-100.0); Platelet Count (auto) 399 10^3/uL (140-450); Red Cell Distribution Width 17.5 % (11.8-14.3); White Blood Cell 11.6 10^3/uL (4.4-10.8)
[2020-07-28 08:37] LABS: Basophils % (manual) 0 (0.0-2.0); Blast Cells 0; Promyelocytes % 0; Reactive Lymphocytes 0
[2020-07-28 08:53] LABS: Albumin 1.9 g/dL (3.4-5.0); Calcium 6.6 mg/dL (8.5-10.1); Potassium 3.5 mmol/L (3.5-5.1)
[2020-07-28 08:57] LABS: BUN/Creatinine Ratio 11.7; Bilirubin, Total 0.4 mg/dL (0.2-1.0); Total Protein 6.2 g/dL (6.4-8.2)
[2020-07-28] MEDS: DexAMETHasone SOD PHOS 10MG/1ML VIAL INJ IV SCH (09:15)
[2020-07-28] MEDS: FAMOTIDINE (10MG/ML) 2ML VL IV SCH (09:17)
[2020-07-28] MEDS: PANTOPRAZOLE 40 MG/10 ML VIAL INJ IV SCH (09:19)
[2020-07-28] MEDS: ASCORBIC ACID 1,000 MG TAB PO SCH (09:20)
[2020-07-28] MEDS: ZINC SULFATE 220mg CAP or TAB PO SCH (09:21)
[2020-07-28] MEDS: CHOLECALCIFEROL (VITD3) 2,000 UNIT CAP PO SCH (09:22)
[2020-07-28] MEDS: ENOXAPARIN SOD 150 MG/1 ML SYRINGE SC SCH (09:22)
[2020-07-28] MEDS: INSULIN LANTUS (GLARGINE) 1 /0.01ml (100units/ml) SC SCH (09:45)
[2020-07-28 14:07] LABS: Band Neutrophils % (manual) 3; Eosinophils % (manual) 4 (0-7); Lymphocytes % (manual) 9 (10.0-50.0); Monocytes % (manual) 10 (0-12)
--- NOTE | 2020-07-28 14:07 | NUR ---
Nutrition Followup Note Wt: 181.4 kg Pt intubated sedated with propofol @ 16.329 ml/hr providing 431 kcals from fats. Pt is currently NPO with no new diet order. Pt had HD yesterday on 07/27 per records. Est energy needs 9010-6158 kcal (20-25 kcal/kg IBW 78kg), Est protein needs 78-94g (1-1.2g/kg IBW 78kg). Will monitor and reassess prn. Labs: BUN 99 H CREAT 8.44 H GLU 133 H ALB 1.9 L BM: Pt has no BM reported per RN note Skin: BS 11 high risk, full details in career resource technician note. PES: Altered nutrition related labs aeb pt with hyperglycemia, elevated RFTs, hyperkalemia, severe hypoalb r/t current medical condition and chronic medical conditions Comments: Continue to monitor NPO status, labs, skin. F/u high 2-3 days. Rec: 1) Consider alternate nutrition of NPO >48hrs. Consider Nepro CS 1.8 at 40 ml/hr as pt is now on HD. 2) Consider prostat 1 packet bid. 3) Advance diet as medically feasible 4) Refer pt to OPD on DC 5) Continue current plan of care.
[2020-07-28 14:08] LABS: Metamyelocytes % 1; Myelocytes % 3
[2020-07-28] MEDS: REMDESIVIR 100 MG in SODIUM CHL 0.9% 250 ML IV SCH (15:14)
[2020-07-28 19:30] VITALS: BP 140/86
[2020-07-28] MEDS: ATORVASTATIN 20 MG TAB PO SCH (22:00)
[2020-07-28 22:25] VITALS: BP 125/78
[2020-07-28] MEDS: PROPOFOL 100 ML IV SCH (23:00)
[2020-07-29] MEDS: ACCU-CHEK COMFORT CURVE STRIP VI SCH ×3 (00:30→11:57)
[2020-07-29] MEDS: InsuLIN REG 1unit/0.01ml Soln (100units/ml) SC SCH ×3 (00:34→11:56)
[2020-07-29 06:47] LABS: White Blood Cell 14.3 10^3/uL (4.4-10.8)
[2020-07-29 06:49] LABS: Hematocrit 39.2 % (41.0-53.0); Hemoglobin 12.5 g/dL (13.5-17.5); Mean Corpuscular Hemoglobin 24.3 pg (28.0-32.0); Mean Corpuscular Hgb Conc. 31.8 g/dL (32.0-36.0); Mean Corpuscular Volume 76.6 fL (80.0-100.0); Platelet Count (auto) 452 10^3/uL (140-450); Red Blood Cells 5.12 10^6/uL (4.5-5.90); Red Cell Distribution Width 17.7 % (11.8-14.3)
[2020-07-29 06:50] VITALS: BP 118/63
[2020-07-29] MEDS: BUDESONIDE (INHALATION) 0.5 MG/2 ML NEB NEB SCH (06:50)
[2020-07-29] MEDS: ALBUTEROL SULF 2.5 MG/0.5ML(0.5%) NEB SOLN NEB PRN (06:50)
[2020-07-29 07:00] LABS: Basophils % (manual) 0 (0.0-2.0); Blast Cells 0; Eosinophils % (manual) 0 (0-7); Promyelocytes % 0; Reactive Lymphocytes 0
[2020-07-29 07:09] LABS: Potassium 3.4 mmol/L (3.5-5.1)
[2020-07-29 07:18] LABS: Albumin 2.1 g/dL (3.4-5.0); BUN/Creatinine Ratio 12.6; Bilirubin, Total 0.4 mg/dL (0.2-1.0); Calcium 7.1 mg/dL (8.5-10.1); Total Protein 6.7 g/dL (6.4-8.2)
[2020-07-29] MEDS: MIDAZOLAM DRIP 50 mg/50mL 50 ML IV SCH (08:15)
[2020-07-29] MEDS: INSULIN LANTUS (GLARGINE) 1 /0.01ml (100units/ml) SC SCH (09:20)
[2020-07-29] MEDS: ZINC SULFATE 220mg CAP or TAB PO SCH (09:20)
[2020-07-29] MEDS: ASCORBIC ACID 1,000 MG TAB PO SCH (09:20)
[2020-07-29] MEDS: DexAMETHasone SOD PHOS 10MG/1ML VIAL INJ IV SCH (09:20)
[2020-07-29] MEDS: FAMOTIDINE (10MG/ML) 2ML VL IV SCH (09:20)
[2020-07-29] MEDS: CHOLECALCIFEROL (VITD3) 2,000 UNIT CAP PO SCH (09:20)
[2020-07-29] MEDS: PANTOPRAZOLE 40 MG/10 ML VIAL INJ IV SCH (09:20)
[2020-07-29] MEDS: ENOXAPARIN SOD 150 MG/1 ML SYRINGE SC SCH (09:21)
[2020-07-29 13:29] LABS: Band Neutrophils % (manual) 5; Metamyelocytes % 1; Myelocytes % 3
[2020-07-29 13:30] LABS: Lymphocytes % (manual) 12 (10.0-50.0); Monocytes % (manual) 10 (0-12)
[2020-07-29 14:22] VITALS: BP 130/67
--- NOTE | 2020-07-29 14:40 | NUR ---
Respiratory note: COMPASSIONATE EXTUBATION DONE AT THIS TIME. RN AT BEDSIDE.
== END 2020-07-29 15:31 | DRG 870 ==
LOC: EDBD 07:30 → ER 07:30 → TELE 07:31
PROVIDERS: ADMIT Hospitalist; ATTEND Internal Medicine
PROC: 5A1955Z Respiratory Ventilation, Greater than 96 Consecutive Hours (ICD-10-PCS; principal; 2020-07-20)
PROC: 0BH17EZ Insertion of Endotracheal Airway into Trachea, Via Natural or Artificial Opening (ICD-10-PCS; 2020-07-20)
PROC: XW033E5 Introduction of Remdesivir Anti-infective into Peripheral Vein, Percutaneous Approach, New Technology Group 5 (ICD-10-PCS; 2020-07-20)
PROC: 06HY33Z Insertion of Infusion Device into Lower Vein, Percutaneous Approach (ICD-10-PCS; 2020-07-20)
PROC: 5A1D70Z Performance of Urinary Filtration, Intermittent, Less than 6 Hours Per Day (ICD-10-PCS; 2020-07-23)
PROC: 06HY33Z Insertion of Infusion Device into Lower Vein, Percutaneous Approach (ICD-10-PCS; 2020-07-23)
PROC: 5A1D70Z Performance of Urinary Filtration, Intermittent, Less than 6 Hours Per Day (ICD-10-PCS; 2020-07-25)
PROC: 5A1D70Z Performance of Urinary Filtration, Intermittent, Less than 6 Hours Per Day (ICD-10-PCS; 2020-07-27)
PROC: XW13325 Transfusion of Convalescent Plasma (Nonautologous) into Peripheral Vein, Percutaneous Approach, New Technology Group 5 (ICD-10-PCS; 2020-07-28)
DX: A41.89 Other specified sepsis (principal); U07.1 COVID-19; R65.21 Severe sepsis with septic shock; J96.01 Acute respiratory failure with hypoxia; G93.41 Metabolic encephalopathy; N17.0 Acute kidney failure with tubular necrosis; E43 Unspecified severe protein-calorie malnutrition; I21.A1 Myocardial infarction type 2; D68.59 Other primary thrombophilia; I13.0 Hypertensive heart and chronic kidney disease with heart failure and stage 1 through stage 4 chronic kidney disease, or unspecified chronic kidney disease; J84.9 Interstitial pulmonary disease, unspecified; J98.11 Atelectasis; L03.119 Cellulitis of unspecified part of limb; Z68.43 Body mass index [BMI] 50.0-59.9, adult; Z99.11 Dependence on respirator [ventilator] status; E87.5 Hyperkalemia; E66.01 Morbid (severe) obesity due to excess calories; I50.9 Heart failure, unspecified; N18.32 Chronic kidney disease, stage 3b; E11.22 Type 2 diabetes mellitus with diabetic chronic kidney disease; E78.5 Hyperlipidemia, unspecified; N28.1 Cyst of kidney, acquired; E11.40 Type 2 diabetes mellitus with diabetic neuropathy, unspecified; R74.01 Elevation of levels of liver transaminase levels; Z66 Do not resuscitate; Z51.5 Encounter for palliative care; Z79.899 Other long term (current) drug therapy; Z79.4 Long term (current) use of insulin
CPT/HCPCS: 31500; 36415; 36556; 36600; 70450; 71045; 71250; 74176; 80053; 80061; 80074; 80202; 80307; 80320; 81001; 82728; 82805; 82962; 83036; 83605; 83615; 83735; 84443; 84484; 85007; 85025; 85027; 85379; 85610; 85730; 86141; 86850; 86900; 86901; 87040; 87070; 87086; 87205; 87426; 87804; 90935; 93005; 93306; 93970; 94002; 94003; 94640; 96365; 96368; 96375; 99291; C9113; G0378; J0330; J0696; J1100; J1642; J1815; J2250; J2405; J2543; J2704; J3490; J7042